=== PATIENT | male | born 1965 | race Hispanic/Latino ===

== ENCOUNTER 2017-10-03 13:26 | Emergency (ER) | payer OTHER ==
[2017-10-03 13:54] LABS: BASOPHILS % (AUTO) 0.2 % (0.0-5.0); EOSINOPHILS % (AUTO) 0.1 % (0.0-8.0); HEMATOCRIT 41.2 % (42-54); LYMPHOCYTES % (AUTO) 17.9 % (21.0-51.0); MEAN CORPUSCULAR HEMOGLOBIN 28.8 pg (27.0-33.0); MEAN CORPUSCULAR VOLUME 84.7 fL (79-99); MONOCYTES % (AUTO) 2.9 % (3.0-13.0); NEUTROPHILS % (AUTO) 78.9 % (40.0-77.0); PLATELET COUNT (AUTO) 298 K/uL (130-400); RED BLOOD CELL COUNT(AUTO) 4.86 MIL/uL (4.50-6.20); RED CELL DISTRIBUTION WIDTH 13.9 % (11.0-15.5); WHITE BLOOD COUNT (AUTO) 8.9 K/uL (4.8-10.8)
[2017-10-03 14:02] LABS: CREATININE 1.1 mg/dL (0.5-1.5)
[2017-10-03 14:06] LABS: ALBUMIN 3.4 g/dL (3.5-5.0); BILIRUBIN,TOTAL 0.4 mg/dL (0.2-1.0); TOTAL PROTEIN, SERUM 8.6 g/dL (6.0-8.3)
[2017-10-03 14:20] LABS: INR 0.93 (0.85-1.15); PARTIAL THROMBOPLASTIN TIME 28.4 SEC (26.3-35.5); PROTHROMBIN TIME 9.8 SEC (9.6-11.6)
[2017-10-03] MEDS ORDERED: LABETALOL HCL 5 MG/ML 20ML VIAL IV ONE (14:39)
[2017-10-03] MEDS ORDERED: SODIUM CHLORIDE 0.9% 1000ML 1,000 ML IV ONE (16:04)
[2017-10-03] MEDS ORDERED: INSULIN HUMULIN R 100 UNIT/ML 3ML ONE (16:05)
[2017-10-03] MEDS ORDERED: LISINOPRIL 5 MG TABLET ONE (16:37)
[2017-10-03] MEDS ORDERED: AMLODIPINE BESYLATE 5 MG TAB PO ONE (16:37)
== END 2017-10-03 18:18 | disposition home or self-care (01) ==
LOC: EDH 13:26
DX: I10 Essential (primary) hypertension (principal); E11.65 Type 2 diabetes mellitus with hyperglycemia; R42 Dizziness and giddiness
CPT/HCPCS: 36415; 80053; 82550; 82948 ×2; 84484; 85025; 85610; 85730; 93005; 96361; 96374; 96375; 99285; J1815; J3490; J7030

== ENCOUNTER 2022-12-07 19:06 | Emergency (ER) | payer OTHER ==
[~2022-12-07] VITALS: Ht 170.2 cm; Wt 77.6 kg
[2022-12-07] MEDS ORDERED: CEPH500B PO (22:42)
[2022-12-07] MEDS ORDERED: DOXY-469 PO (22:42)
[2022-12-07 22:46] VITALS: BP 152/70
== END 2022-12-07 22:51 | disposition home or self-care (01) ==
LOC: EDH 19:06
DX: M79.674 Pain in right toe(s) (principal); R20.0 Anesthesia of skin; I10 Essential (primary) hypertension; E11.9 Type 2 diabetes mellitus without complications; Z90.49 Acquired absence of other specified parts of digestive tract; Z98.890 Other specified postprocedural states
CPT/HCPCS: 73660